=== PATIENT | female | born 1960 | race Caucasian/White ===

== ENCOUNTER 2018-08-26 11:54 | Emergency (ER) | payer SELFPAY ==
[~2018-08-26] VITALS: Ht 162.6 cm; Wt 118.8 kg
[2018-08-26 12:01] VITALS: Ht 162.6 cm; Wt 118.8 kg
--- NOTE | 2018-08-26 12:17 | ERD ---
ER Documentation Chief Complaint Chief Complaint Right shoulder pain HPI The patient is a 58-year-old female, presenting to the ER because of acute right shoulder pain after she fell last night around 9 PM, syncope, near syncope, neck pain, chest pain, dyspnea. He also complains of transient bilateral nostril bleeding and a superficial abrasion on the upper lip, left sided ribs discomfort, minimal right hip discomfort when walking. She does not smoke or drink Past medical history: Diabetes mellitus, rheumatoid arthritis Past surgical history: Bilateral knee arthroscopy, right hip arthroplasty, right elbow arthroscopy ROS All systems reviewed and are negative except as per history of present illness. Medications Home Meds Active Scripts Hydrocodone/Acetaminophen (Greenup 5-325 Tablet) 1 Each Tablet, 1 TAB PO Q6H PRN for PAIN, #7 TAB Prov:SIENA DELA CRUZ MD 08/26/18 Allergies Allergies: Coded Allergies: morphine (Verified Adverse Reaction, Severe, NAUSEA, 08/26/18) PER PT & RELATIVE Physical Exam Vitals Vital Signs Date Temp Pulse Resp B/P (MAP) Pulse Ox O2 O2 Flow FiO2 Time Delivery Rate 08/26/18 72 20 154/68 98 Room Air 18:05 (96) 08/26/18 98.6 81 18 147/95 94 12:01 (112) Physical Exam Const: No acute distress. Head: Atraumatic. Eyes: Normal Conjunctiva. ENT: Normal External Ears, Nose and Mouth. Neck: Full range of motion. No meningismus. Resp: Clear to auscultation bilaterally. Cardio: Regular rate and rhythm. Abd: Soft, non distended, normal bowel sounds, non tender. Skin: No petechiae or rashes. Back: No midline or flank tenderness. Ext: Moderate right shoulder tenderness, no skin violation, palpable radial and ulnar pulses, minimal right hip discomfort Neur: Awake and alert. No focal deficit Psych: Normal Mood and Affect. Results 24 hrs Current Medications Medications Dose Sig/Mia Start Time Status Last (Trade) Ordered Route PRN Stop Time Admin Dose Reason Admin Diphtheria/ 0.5 ml ONCE ONCE 08/26/18 DC 08/26/18 Tetanus/Acell IM* 12:30 13:14 Pertussis 08/26/18 12:31 (Adacel) 1 tab ONCE ONCE 08/26/18 DC 08/26/18 Acetaminophen PO 13:00 13:14 / 08/26/18 13:01 Hydrocodone Bitart (Greenup (5/325)) Ondansetron 4 mg ONCE STAT 08/26/18 DC 08/26/18 HCl (Zofran ODT 12:57 13:14 Odt) 08/26/18 12:59 Procedures/MDM [place] [address] Radiology Main Line: [phone] DIAGNOSTIC IMAGING REPORT Patient: TOBI CABA : 1960 Age: 58 Sex: F MR #: [id number] DOS: 08/26/18 1414 Ordering MD: SIENA DELA CRUZ MD Location: E/R Room/Bed: PROCEDURE: CT RIGHT SHOULDER. CLINICAL INDICATION: Shoulder pain TECHNIQUE: CT scan of the right shoulder was performed on a multi -slice scanner. No IV contrast was administered. Coronal and sagittal reformatted images were obtained from the axial source images. The total exam DLP equals 812.05 mGy-cm. The CDTI volume was 57.5 mGy. One or more of the following dose reduction techniques were used: - Automated exposure control. - Adjustment of the mA and/or kV according to patient size . - Use of iterative reconstruction technique. Images were reviewed on a high-resolution PACS workstation. DICOM images are available. COMPARISON: DR MIN 08/26/2018 FINDINGS: Comminuted, mildly displaced impacted right humeral neck fracture which involves the greater and lesser tuberosity is (series 2 image 39) and posterolateral loren ral head (series 2 image 36). Severe arthrosis of the glenohumeral joint with complete joint space loss, subchondral cystic and sclerotic changes, and osseous remodelling/flattening, without acute glenohumeral joint dislocation. Arthrosis is also present at the AC joint without evidence of acute dislocation. No evidence of acute fracture to the right clavicle or imaged portions of the right ribs. Moderate soft tissue swelling and stranding surrounds the fracture site and extends into the right axilla. No evidence of pleural effusion or pneumothorax in the imaged portion of the right lung. IMPRESSION: Comminuted, impacted and displaced humeral neck fracture which extends into the greater and lesser tuberosity is and humeral head. Severe degenerative joint disease of the glenohumeral and acromioclavicular joints without acute dislocation. Moderate soft tissue swelling and stranding surrounds the fracture site and extends into the right axilla. RPTAT: HRGF Mason Smith, Physician Date Time Electronically viewed and signed by Mason Smith Physician on 08/26/2018 15:40 RF/ CC: SIENA DELA CRUZ MD [phone] [place] [address] Radiology Main Line: [phone] DIAGNOSTIC IMAGING REPORT Patient: TOBI CABA : 1960 Age: 58 Sex: F MR #: [id number] DOS: 08/26/18 1217 Ordering MD: SIENA DELA CRUZ MD Location: E/R Room/Bed: PROCEDURE: XR chest. CLINICAL INDICATION: Chest pain TECHNIQUE: A single frontal view of the chest was obtained. COMPARISON: Left-sided rib pain FINDINGS: Heart is mildly enlarged. Aortic arch is mildly atherosclerotic. There is no pneumothorax or pleural effusion. Right lung is clear. There is subsegmental left basilar atelectasis. Comminuted proximal right humeral fracture is partially seen. IMPRESSION: 1. Subsegmental left basilar atelectasis. 2. Mild cardiomegaly and aortic atherosclerosis. 3. Comminuted proximal right humeral fracture, partially seen. 4. If there is clinical concern for acute rib fracture, dedicated rib radiographs could be obtained. RPTAT: DD Ceferino Plummer Physician Date Time Electronically viewed and signed by Physician Jad on 08/26/2018 13:31 RM/ CC: SIENA DELA CRUZ MD [phone] [place] [address] Radiology Main Line: [phone] DIAGNOSTIC IMAGING REPORT Patient: TOBI CABA : 1960 Age: 58 Sex: F MR #: [id number] DOS: 08/26/187 Ordering MD: SIENA DELA CRUZ MD Location: E/R Room/Bed: PROCEDURE: XR Hip. CLINICAL INDICATION: Hip pain. TECHNIQUE: 2 portable views of the right hip were obtained. COMPARISON: None. FINDINGS: There postsurgical changes of total right hip arthroplasty. There is no acute fracture or dislocation. Hardware appears intact. Visualized osseous structures are intact. The soft tissues are unremarkable. IMPRESSION: 1. No acute osseous abnormality. 2. Postsurgical changes of total right hip arthroplasty. RPTAT: DD Physician Jad Date Time Electronically viewed and signed by Ceferino Plummer Physician on 08/26/2018 13:33 RM/ CC: SIENA DELA CRUZ MD [id number] [place] [address] Radiology Main Line: [phone] DIAGNOSTIC IMAGING REPORT Patient: TOBI CABA : 1960 Age: 58 Sex: F MR #: [id number] DOS: 08/26/187 Ordering MD: SIENA DELA CRUZ MD Location: E/R Room/Bed: PROCEDURE: XR humerus. CLINICAL INDICATION: Pain. TECHNIQUE: Two views of the right humerus were obtained. COMPARISON: None. FINDINGS: There is a comminuted, impacted, and moderately displaced humeral neck fracture extending to the humeral head. Small displaced fracture fragments are seen near the fracture site. Remaining osseous structures are intact. There are moderate to severe degenerative changes of the shoulder and elbow joints. There is no focal soft tissue abnormality. IMPRESSION: 1. Comminuted, impacted and moderately displaced humeral neck fracture extending to the humeral head. 2. Osteoarthritis. RPTAT: DD Physician Jad Date Time Electronically viewed and signed by Ceferino Plummer Physician on 08/26/2018 13:30 RM/ CC: SIENA DELA CRUZ MD [id number] [place] [address] Radiology Main Line: [phone] DIAGNOSTIC IMAGING REPORT Patient: TOBI CABA : 1960 Age: 58 Sex: F MR #: [id number] DOS: 08/26/18 1217 Ordering MD: SIENA DELA CRUZ MD Location: E/R Room/Bed: PROCEDURE: XR shoulder. CLINICAL INDICATION: pain TECHNIQUE: AP Internal and external rotation views and scapular Y-view of the right shoulder were performed. COMPARISON: None. FINDINGS: Comminuted fracture of the humeral surgical neck is identified with up to 9 mm medial displacement of the humeral shaft with respect to the humeral head. Humeral head remains in articulation with the glenoid. Close contact of the superior humeral head surface with the acromion undersurface is consistent with full-thickness rotator cuff tear. Mild AC joint arthrosis with joint space narrowing and hypertrophic spurring. Unremarkable appearance of the visualized right clavicle and upper right rib cage. There is mild soft tissue edema and stranding overlying the fracture. No radiopaque foreign body identified. IMPRESSION: Comminuted fracture of the humeral surgical neck with up to 9 [address] displacement[address] Additional CT imaging can be helpful to assess the greater and lesser tuberosities. Full-thickness rotator cuff tear as evidenced by close contact of the superior humeral head with the acromion. RPTAT: EE Physician Rose Ramirez Date Time Electronically viewed and signed by Jarred King Physician Nurse Prn on 08/26/2018 13:25 rP/ CC: SIENA DELA CRUZ MD [phone] Consultation: I discussed the patient with Dr on-call orthopedist Dr Yates, at 2:15 pm, who requested for CT, and again at [address]. He recommended the patient to be seen by the orthopedist who specializes in shoulder MEDICAL MAKING DECISION: The patient is a 58-year-old female, presenting with acute right shoulder fracture, complicated. She was treated with Tdap IM, Greenup 5 mg p.o. for pain and Zofran ODT for nausea and right shoulder immobilizer. Post immobilizer neurovascular is intact The differential diagnoses considered include but are not limited to fracture, internal derangement Departure Diagnosis: Primary Impression: Shoulder fracture, right Condition: Stable Comments I discussed the findings with the patient. I advised the patient to follow-up with the orthopedist Dr Getachew Chiang tomorrow and return if any concern. Disclaimer: Inadvertent spelling and grammatical errors are likely due to EHR/dictation software use and do not reflect on the overall quality of patient care. Also, please note that the electronic time recorded on this note does not necessarily reflect the actual time of the patient encounter. SIENA DELA CRUZ MD Aug 26, 2018 12:17
[2018-08-26] MEDS ORDERED: DIPHTH/TET/ACEL PERTUSS (ADULT) 0.5 ML VIAL IM* ONE (12:30)
[2018-08-26] MEDS ORDERED: ONDANSETRON (ODT) 4 MG TAB ODT STA (12:57)
[2018-08-26] MEDS ORDERED: HYDROCODONE/APAP (5/325) TAB PO ONE (13:00)
[2018-08-26] MEDS ORDERED: HYDR-4011 PO (17:35)
[2018-08-26 18:05] VITALS: BP 154/68; PULSE 72; RESP 20
== END 2018-08-26 18:19 | disposition home or self-care (01) ==
LOC: E/R 11:54
DX: S42.211A Unspecified displaced fracture of surgical neck of right humerus, initial encounter for closed fracture (principal); E11.9 Type 2 diabetes mellitus without complications; W18.30XA Fall on same level, unspecified, initial encounter; Y92.9 Unspecified place or not applicable
CPT/HCPCS: 71045; 73200; 73510; 90471; 90715